=== PATIENT | male | born 1975 | race Caucasian/White ===

== ENCOUNTER 2017-12-30 12:13 | Emergency (ER) | payer BC, OTHER ==
--- NOTE | 2017-12-30 12:27 | ER Report ---
History and Physical Time Seen By MD: 12:27 HPI/ROS CHIEF COMPLAINT: Losing feeling in extremities HISTORY OF PRESENT ILLNESS: Patient is a 42-year-old male who presents with approximately 1 hour worth of brief but intense headache that lasted a few seconds to the left temporal region. The headache resolved completely. He complains of numbness and tingling to all 4 extremities in a stocking glove like distribution. The tingling has improved and now he feels as if the extremities are sweaty. Patient has a prior diagnosis of hypertension but is currently not treated with any medications. He denies any chest pain or shortness of breath. Patient states he was at home when the symptoms occurred just finished eating breakfast he was not significantly exerting himself. Patient is a nonsmoker. She does not use tobacco products. Patient denies any difficulty with speech he denies any weakness to any extremities. He denies any difficulty with memory. REVIEW OF SYSTEMS: Constitutional: No fever, no chills. Eyes: No discharge. ENT: No sore throat. Cardiovascular: No chest pain, no palpitations. Respiratory: No cough, no shortness of breath. Gastrointestinal: No abdominal pain, no vomiting. Genitourinary: No hematuria. Musculoskeletal: No back pain. Skin: No rashes. Neurological: Brief headache which is now resolved, numbness and tingling Allergies: Coded Allergies: No Known Drug Allergies (Unverified , 12/30/17) Home Meds Active Scripts Lisinopril (LISINOPRIL) 10 Mg Tablet, 10 MG PO QDAY, #30 TAB 0 Refills Prov:HILL RIVAS MD 12/30/17 Past Medical/Surgical History Past medical history for hypertension which is untreated, past surgical history for total left knee surgery Hx Smoking: No Smoking Status: Never Smoker Hx Substance Use Disorder: No Hx Alcohol Use: Yes (3 nightly) Constitutional Vital Sign - Last 24 Hours 12/30/17 12/30/17 12/30/17 12/30/17 12:24 13:00 13:30 13:55 Temp 97.9 Pulse 91 88 88 85 Resp 14 14 14 14 B/P (MAP) 188/118 136/111 (119) 138/86 (103) 150/100 (117) Pulse Ox 91 90 91 91 O2 Delivery Room Air Room Air Room Air Room Air Physical Exam General/Constitutional: Patient is awake, alert, nontoxic and in no acute respiratory distress. Head: Normocephalic and atraumatic. Eyes: Conjunctival clear, Pupils are equal and reactive to light. Extraocular muscles are intact and symmetrical. Sclera are clear and anicteric. Ears:External canals are clear. Tympanic membranes are clear with normal landmarks and light reflex. Nares: No rhinorrhea or bleeding. Turbinates are pink and moist. Oropharyngeal: Mucous membranes are moist. There is no pharyngeal erythema or exudate. There are no palatal petechiae. Uvula is midline and symmetrical. Neck: Supple, no adenopathy. Cardiovascular: Heart is regular rate and rhythm without audible murmurs, rubs or gallops. Pulmonary: Lungs are clear to auscultation bilaterally. There are no wheezes, rales, or rhonchi. Chest rise is symmetrical Abdomen: Soft, nontender, no guarding or peritoneal signs. Extremities: No gross deformities, No peripheral cyanosis. Able to move all 4 extremities. Neuro: Alert and oriented X3, Cranial nerves 2 thru 12 are intact and symmetrical. Skin: No rashes, skin is warm dry and well perfused. Medical Decision Making Data Points Result Diagram: 12/30/17 1253 12/30/17 1253 Laboratory Hematology Test 12/30/17 12:53 Red Blood Count 4.99 M/uL (4.00-5.60) Mean Corpuscular Volume 89.8 fL (80.0-96.0) Mean Corpuscular Hemoglobin 31.9 pg (26.0-33.0) Mean Corpuscular Hemoglobin Concent 35.5 g/dL (32.0-36.0) Red Cell Distribution Width 12.8 % (11.5-14.5) Mean Platelet Volume 7.3 fL (7.2-11.1) Neutrophils (%) (Auto) 57.3 % (39.4-72.5) Lymphocytes (%) (Auto) 30.7 % (17.6-49.6) Monocytes (%) (Auto) 9.3 % (4.1-12.4) Eosinophils (%) (Auto) 1.9 % (0.4-6.7) Basophils (%) (Auto) 0.8 % (0.3-1.4) Nucleated RBC Relative Count (auto) 0.1 /100WBC Neutrophils # (Auto) 3.2 K/uL (2.0-7.4) Lymphocytes # (Auto) 1.7 K/uL (1.3-3.6) Monocytes # (Auto) 0.5 K/uL (0.3-1.0) Eosinophils # (Auto) 0.1 K/uL (0.0-0.5) Basophils # (Auto) 0.0 K/uL (0.0-0.1) Nucleated RBC Absolute Count (auto) 0.00 K/uL Sodium Level 140 mmol/L (137-145) Potassium Level 3.7 mmol/L (3.5-5.0) Chloride Level 102 mmol/L (98-107) Carbon Dioxide Level 25 mmol/L (22-30) Blood Urea Nitrogen 12 mg/dl (9-21) Creatinine 0.90 mg/dl (0.66-1.25) Glomerular Filtration Rate Calc > 60.0 Random Glucose 112 mg/dl (75-110) Calcium Level 9.3 mg/dl (8.4-10.2) Total Bilirubin 0.4 mg/dl (0.2-1.3) Aspartate Amino Transf (AST/SGOT) 31 U/L (0-35) Alanine Aminotransferase (ALT/SGPT) 49 U/L (0-56) Alkaline Phosphatase 78 U/L (0-126) Troponin I < 0.012 ng/ml Total Protein 7.1 g/dl (6.3-8.2) Albumin 4.3 g/dl (3.5-5.0) Chemistry Test 12/30/17 12:53 White Blood Count 5.6 k/uL (4.5-11.0) Red Blood Count 4.99 M/uL (4.00-5.60) Hemoglobin 15.9 g/dL (14.0-18.0) Hematocrit 44.8 % (42.0-52.0) Mean Corpuscular Volume 89.8 fL (80.0-96.0) Mean Corpuscular Hemoglobin 31.9 pg (26.0-33.0) Mean Corpuscular Hemoglobin Concent 35.5 g/dL (32.0-36.0) Red Cell Distribution Width 12.8 % (11.5-14.5) Platelet Count 225 K/uL (150-450) Mean Platelet Volume 7.3 fL (7.2-11.1) Neutrophils (%) (Auto) 57.3 % (39.4-72.5) Lymphocytes (%) (Auto) 30.7 % (17.6-49.6) Monocytes (%) (Auto) 9.3 % (4.1-12.4) Eosinophils (%) (Auto) 1.9 % (0.4-6.7) Basophils (%) (Auto) 0.8 % (0.3-1.4) Nucleated RBC Relative Count (auto) 0.1 /100WBC Neutrophils # (Auto) 3.2 K/uL (2.0-7.4) Lymphocytes # (Auto) 1.7 K/uL (1.3-3.6) Monocytes # (Auto) 0.5 K/uL (0.3-1.0) Eosinophils # (Auto) 0.1 K/uL (0.0-0.5) Basophils # (Auto) 0.0 K/uL (0.0-0.1) Nucleated RBC Absolute Count (auto) 0.00 K/uL Glomerular Filtration Rate Calc > 60.0 Calcium Level 9.3 mg/dl (8.4-10.2) Total Bilirubin 0.4 mg/dl (0.2-1.3) Aspartate Amino Transf (AST/SGOT) 31 U/L (0-35) Alanine Aminotransferase (ALT/SGPT) 49 U/L (0-56) Alkaline Phosphatase 78 U/L (0-126) Troponin I < 0.012 ng/ml Total Protein 7.1 g/dl (6.3-8.2) Albumin 4.3 g/dl (3.5-5.0) EKG/Imaging EKG Interpretation EKG shows normal sinus rhythm with a ventricular rate of [address] segment or T-wave abnormalities noted. Monitor Interpretation: Normal Sinus Rhythm Imaging [place] [facility] [place] NAME: Keo Ellington : 1975 MR: [id number] V: [id number] EXAM DATE: ORDERING PHYSICIAN: HILL RIVAS TECHNOLOGIST: [place] [facility] [place] Keo Ellington : 1975 Visit/Account:[id number] Date of Sevice: 12/30/[address] scan without contrast COMPARISONS: None ADDITIONAL PERTINENT HISTORY: Weakness TECHNIQUE: Multiple axial images were obtained from the skull base to the vertex without IV contrast. One of the following dose optimization techniques was utilized in the performance of this exam: Automated exposure control; adjustment of the mA and/or kV according to the patient's size; or use of an iterative reconstruction technique. Specific details can be referenced in the facility's radiology CT exam operational policy. FINDINGS: Midline shift: Negative Ventricles: Negative Brain parenchyma: Negative Extra-axial spaces: Negative Intracranial vasculature: Cavernous internal carotid artery calcifications. Otherwise negative Osseous structures: Negative Paranasal sinuses and mastoid air cells: Mild mucosal thickening involving both maxillary sinuses. Otherwise negative Surrounding soft tissues and orbits: Negative IMPRESSION: 1. No evidence of acute intracranial pathology. 3. Minimal paranasal sinus disease. Report Dictated By: Eugenio Strickland MD at 12/30/2017 1:31 PM Report E-Signed By: Eugenio Strickland MD at 12/30/2017 1:34 PM WSN:[id number] [place] [facility] [place]IENT NAME: Keo Ellington : 1975 MR: [id number] V: [id number] EXAM DATE: ORDERING PHYSICIAN: HILL RIVAS TECHNOLOGIST: [place] [facility] [place] Keo Ellington : 1975 Visit/Account:[id number] Date of Sevice: 12/30/2017 CHEST PA AND LAT COMPARISONS: 2 view chest dated March 02, 2014 ADDITIONAL PERTINENT HISTORY: Chest pain and weakness FINDINGS: Cardiomediastinal silhouette: Negative. Pulmonary vasculature: Negative. Lung bella: Negative. Pleural spaces: Negative. Osseous structures: Negative. Surrounding soft tissues: Negative. IMPRESSION: No evidence of acute cardiopulmonary disease. Report Dictated By: Eugenio Strickland MD at 12/30/2017 1:34 PM Report E-Signed By: Eugenio Strickland MD at 12/30/2017 1:35 PM WSN:[id number] ED Course/Re-evaluation Clinical Indication for ER IV: IV Access ED Course 12/30/2017 12:43:43 pm plan at this time will be cardiac workup patient is hypertensive we'll give half milligram of Ativan as I feel that his symptoms could be related to hyperventilation. We will also perform CT scan of the head Decision to Disposition Date: Dec 30, 2017 Decision to Disposition Time: 13:45 Depart Departure Latest Vital Signs Vital Signs Date Time Temp Pulse Resp B/P (MAP) Pulse Ox O2 Delivery O2 Flow Rate FiO2 12/30/17 13:55 85 14 150/100 (117) 91 Room Air 12/30/17 12:24 97.9 Impression: Primary Impression: Hypertension Condition: Improved Disposition: HOME OR SELF-CARE Referrals: ASHLEY WHITE 2 Weeks for blood pressure check up New Scripts Lisinopril (LISINOPRIL) 10 Mg Tablet 10 MG PO QDAY, #30 TAB 0 Refills Prov: HILL RIVAS MD 12/30/17 Patient Instructions: Hypertension (ED) Problem Qualifiers Primary Impression: Hypertension Hypertension type: essential hypertension Qualified Codes: I10 - Essential ( primary) hypertension HILL RIVAS MD Dec 30, 2017 12:27
[2017-12-30] MEDS ORDERED: NS(*) 0.9% 500 ML BAG 500 ML IV ONE (12:36)
[2017-12-30] MEDS ORDERED: ASPIRIN 81 MG CHEW PO ONE (12:40)
[2017-12-30] MEDS ORDERED: LORazepam 2 MG/ML VIAL IVP ONE (12:40)
--- NOTE | 2017-12-30 12:45 | EKG ---
[place] [facility] [place]IENT NAME: LUDA DICKSON : [id number] MR: [id number] V: [id number] EXAM DATE: ORDERING PHYSICIAN: HILL RIVAS TECHNOLOGIST: SHONDA Sanchez Reason : Blood Pressure : / mmHG Vent. Rate : 084 BPM Atrial Rate : 084 BPM P-R Int : 196 ms QRS Dur : 096 ms QT Int : 382 ms P-R-T Axes : 045 -16 017 degrees QTc Int : 451 ms Normal sinus rhythm When compared with ECG of 02-MAR-2014 16:53, No significant change was found Confirmed by LILIAN SINGH ([id number]) on 12/30/2017 10:20:55 PM Referred By: ROB Confirmed By:LILIAN SINGH
[2017-12-30 13:17] LABS: PLATELET COUNT, AUTOMATED 225 K/uL (150-450)
--- NOTE | 2017-12-30 13:38 | RADIOLOGY IMAGING REPORT ---
FACILITY: [facility] - [place] PATIENT NAME: Keo Ellington : 1975 MR: [id number] V: [id number] EXAM DATE: ORDERING PHYSICIAN: HILL RIVAS TECHNOLOGIST: Location: [facility] [place] Patient: Keo Ellington : 1975 Visit/Account:[id number] Date of Sevice: 12/30/[address] scan without contrast COMPARISONS: None ADDITIONAL PERTINENT HISTORY: Weakness TECHNIQUE: Multiple axial images were obtained from the skull base to the vertex without IV contrast . One of the following dose optimization techniques was utilized in the performance of this exam: Aut omated exposure control; adjustment of the mA and/or kV according to the patient's size; or use of an iterative reconstruction technique. Specific details can be referenced in the facility's radiology CT exam operational policy. FINDINGS: Midline shift: Negative Ventricles: Negative Brain parenchyma: Negative Extra-axial spaces: Negative Intracranial vasculature: Cavernous internal carotid artery calcifications. Otherwise negative Osseous structures: Negative Paranasal sinuses and mastoid air cells: Mild mucosal thickening involving both maxillary sinuses. O therwise negative Surrounding soft tissues and orbits: Negative IMPRESSION: 1. No evidence of acute intracranial pathology. 3. Minimal paranasal sinus disease. Report Dictated By: Eugenio Strickland MD at 12/30/2017 1:31 PM Report E-Signed By: Eugenio Strickland MD at 12/30/2017 1:34 PM WSN:[id number]
--- NOTE | 2017-12-30 13:39 | RADIOLOGY IMAGING REPORT ---
FACILITY: [facility] PATIENT NAME: Keo Ellington : 1975 MR: [id number] V: [id number] EXAM DATE: ORDERING PHYSICIAN: HILL RIVAS TECHNOLOGIST: Location: [facility] - [place] Patient: Keo Ellington : 1975 Visit/Account:[id number] Date of Sevice: 12/30/2017 CHEST PA AND LAT COMPARISONS: 2 view chest dated March 02, 2014 ADDITIONAL PERTINENT HISTORY: Chest pain and weakness FINDINGS: Cardiomediastinal silhouette: Negative. Pulmonary vasculature: Negative. Lung bella: Negative. Pleural spaces: Negative. Osseous structures: Negative. Surrounding soft tissues: Negative. IMPRESSION: No evidence of acute cardiopulmonary disease. Report Dictated By: Eugenio Strickland MD at 12/30/2017 1:34 PM Report E-Signed By: Eugenio Strickland MD at 12/30/2017 1:35 PM WSN:[id number]
[2017-12-30] MEDS ORDERED: LISI-362 PO (13:49)
[2017-12-30 13:55] VITALS: BP 150/100
== END 2017-12-30 13:58 | disposition home or self-care (01) ==
LOC: ER 12:38
DX: I10 Essential (primary) hypertension (principal)
CPT/HCPCS: 70450; 71046; 84484; 85025; 93005; 96361; 96374; 99284; J2060; J7040; 82040; 82247; 82310; 82374; 82435; 82565; 82947; 84075; 84132; 84155; 84295; 84450; 84460; 84520